=== PATIENT | female | born 1985 | race Two or more races ===

== ENCOUNTER 2017-10-04 14:01 | Emergency (ER) | payer SELFPAY ==
[~2017-10-04] VITALS: Ht 170.2 cm; Wt 59.4 kg
[2017-10-04 14:08] VITALS: BP 122/68
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
[2017-10-04] MEDS ORDERED: IBUPROFEN 600 MG TABLET PO ONE ×2 (14:27→14:30)
== END 2017-10-04 15:59 | disposition home or self-care (01) ==
LOC: ER 14:03
DX: S63.592A Other specified sprain of left wrist, initial encounter (principal); S80.02XA Contusion of left knee, initial encounter; S97.82XA Crushing injury of left foot, initial encounter; V03.90XA Pedestrian on foot injured in collision with car, pick-up truck or van, unspecified whether traffic or nontraffic accident, initial encounter; Y93.89 Activity, other specified; Y92.413 State road as the place of occurrence of the external cause; Y99.8 Other external cause status; X50.1XXA Overexertion from prolonged static or awkward postures, initial encounter
CPT/HCPCS: 29125; 73564; 73630; 99284; A4606; Z7610